=== PATIENT | male | born 1995 | race Caucasian/White ===

== ENCOUNTER → 2020-03-17 15:43 | Outpatient (CLI) | payer BC, SELFPAY | PROVIDERS: PCP Nurse Practitioner Family; Referring Provider Otolaryngology; Visit Provider Otolaryngology | DX: B37.9 Candidiasis, unspecified (principal) | CPT/HCPCS: 87070; 87205 ==

== ENCOUNTER → 2020-09-24 12:43 | Outpatient (CLI) | payer BC, SELFPAY ==
--- NOTE | 2020-09-26 19:50 | ST.MBS ---
Modified Barium Swallow - Patient Information Study Date: 09/24/20 Study Time: 12:50 Direct Billable Minutes: 70 Total Minutes procedure & reportin Diagnosis: Dysphagia (R13.14) Referring Physician: Juan Ramon Murphy Reason for Referral: The patient is a 25 year old male referred for a modified barium swallow (MBS) study to objectively assess the patients oropharyngeal swallow function under fluoroscopy secondary to reported persistent post prandial sensations of solid bolus stasis located below the laryngeal notch / above the manubrium of the sternum, with an associated 80lb weight loss since February of 2020. Medical History: Scoliosis, arthritis, depression, anxiety - Penetration-Aspiration Scale Penetration-Aspiration Scale: PENETRATION / ASPIRATION SCALE (SCORE): Thin liquid - 5 mL tsp.: 1 Thin liquids via cup: 1 Thin liquids via cup: 1 Thin liquids via cup (sequential): 2 Pudding via spoon: 1 Solid textures (Peggy Doone): 1 Solid textures (Bagel): 1 Solid textures (Bagel): 1 Thin liquids via straw: 1 - Oral Phase Labial Seal: No Labial Escape Tongue Control During Bolus Hold: Cohesive bolus between tongue to palatal seal Bolus Preparation/Mastication: Timely and efficient chewing and mashing Bolus Transport/Lingual Motion: Delayed initiation of tongue motion Oral Residue: Trace residue lining oral structures - Pharyngeal Phase Initiation of Pharyngeal Swallow: Bolus head in valleculae Soft Palate Elevation: No bolus between soft palate and pharyngeal wall Laryngeal Elevation: Comp. Superior move thyroid cart w/comp. apprx arytenoid cart-epig pet Anterior Hyoid Excursion: Partial anterior movement Epiglottic Movement: Complete inversion Laryngeal Vestibule Closure at Height of Swallow: Complete; no air/contrast in laryngeal vestibule Pharyngeal Stripping Wave: Present - complete Pharyngoesophageal Segment Opening: Parital distension and partial duration; parital obstruction of flow Tongue Base Retraction: Trace column of contrast between tongue base & post. pharyngeal wall Pharyngeal Residue: Trace residue within or on pharyngeal structures - Esophageal Phase Esophageal Clearance: Complete clearance - Diagnosis/Impression Diagnosis: Grossly within functional limits Impression: The patient presents with mastication and deglutition abilities found to be grossly within functional limits (DSRS: 1) He demonstrates competent bolus manipulation and mastication, though was more deliberate than what would be anticipated from age matched peers. The remainder of the oral preparatory phase and oral transitional phase appears unremarkable. There was a mild reduction in anterior hyoid excursion which likely contributed to the mild reduction in pharyngoesophageal segment relaxation, though there was no functional impairment noted, with the bolus transitioned to the esophageal phase without issue. The remainder of the pharyngeal phase appeared unremarkable. There were no obvious esophageal phase abnormalities observed during the esophageal scan. The current results suggest that the patient is appropriate to transition to an unrestricted solid diet. However, there does appear to be an element of phagophobia (fear of swallowing) following the initial episode that lead to his texture limitation and gradual weight loss. We will continue to assist his transition to solid textures, with the current study results likely providing positive biofeedback for the patient regarding his oropharyngeal swallow profile. - Recommendations Comment: DIET TEXTURE RECOMMENDATIONS: regular easy to chew textured (IDDSI: 7), thin liquid diet (IDDSI: 0) RECOMMENDED COMPENSATORY STRATEGIES: I would recommend initially cutting solid textures into bite sized pieces (1.5 x 1.5 cm) as he transitions back to a regular-solid textured diet, reduced rate of intake, liquid chaser at reasonable intervals, seated upright at 90 degrees during PO intake, medications one at a time with a liquid chaser. Education Completed: 1. Described result of evaluation., 2. Pt understands evaluation & agrees with goals and treatment plan. - Image Count: [phone] - Status Active ST Patient: Not Active - Contact Information [facility] Speech Therapy:: Oleg Membreno M.A., ELLI-FLASHER ADJUSTER, CBIS MBSImP Certified, LSVT Certified [facility] Speech-Language Pathology Department Email: [email or web address]
== END ==
PROVIDERS: PCP Preventive Medicine Occupational Medicine; Referring Provider Otolaryngology; Visit Provider Otolaryngology
DX: R13.14 Dysphagia, pharyngoesophageal phase (principal)
CPT/HCPCS: 74230; 92611

== ENCOUNTER 2020-10-24 15:00 | Outpatient (RCR) | payer BC, SELFPAY ==
--- NOTE | 2020-09-19 15:00 | SOAP_ITS ---
REASON FOR REFERRAL: The patient is a pleasant 25 year old male referred for a clinical assessment of the swallow function at [facility] on 09/19/2020 due to persistent symptoms of dysphagia with an unknown etiology of cause. He reports that his difficulties started in February 2020, with the patient reportedly consuming pizza crust rapidly (he reports that this was a tendency of his), and feeling as though the crust was lodged below the laryngeal notch / above the manubrium of the sternum. He attempted to make himself throw up in an effort to expel the crust, though this was not successful. He reports that this sensation as continued since, and while he reports that the sensation is quite uncomfortable, he denies odynophagia (pain during swallow). He reports that he has lost an astounding 80lbs since February of 2020, and has avoided all solid textures, with all intake consisting of liquids, pureed textures, and some ?soft solids? (nothing more solid than a banana), with no recent attempts to consume more complex solids since. He does admit that he is nervous about trying more solid textures, though he states his appetite remains and strongly desires to consume solids. To date, he has undergone workup through 2 otolaryngologists (Dr. Ahn, currently Dr. Murphy) as well as a acid recovery operator (Dr. Nichols). He repots that the initial suspicion was that he may have a stricture in addition to candidiasis (was treated with oral nystatin and later Fluconazole), with additional irritation possibly from gastroesophageal reflux that was treated with an unspecified proton pump inhibitor, though this did not improve his symptoms. He underwent a barium swallow study and an EGD (though no dilation was needed), though the results of both are reportedly unremarkable. To date no modified barium swallow study or fiberoptic endoscopic evaluation of swallowing (FEES) have been conducted. He reports that he has always struggled with consuming pills, and does routinely take Tylenol due to pain with his scoliosis; he reports that he has to chew his pills, and can take upwards of 3-4 Tylenol per day depending on his pain (however this is much less frequent since the February 2020 episode). He reports persistent xerostomia (dry mouth) since February, with his saliva feeling ?thick?; he has had some benefit managing this with cough drops. The patient denies any overt signs and symptoms of aspiration aside from an occasional post prandial cough with thin liquids (< 1x per month). MEDICAL HISTORY: Scoliosis, arthritis, depression, anxiety PREVIOUS MODIFIED BARIUM SWALLOW STUDY: None RESULTS OF THE EVALUATION: The patient presents with symptoms suggestive of mild pharyngoesophageal dysphagia with an unknown etiology of cause. SUPPLEMENTARY DYSPHAGIA ASSESSMENT RESULTS (SCALES / PROM): REFLUX SYMPTOM INDEX (RSI) RSI TOTAL SCORE: 19 RSI INDICATIONS: a score of >13 may indicate significant reflux EATING ASSESSMENT TOOL ? 10 (EAT-10): EAT-10 TOTAL SCORE: 32 EAT-10 INTERPRETATION: a score of 3+ may represent swallowing problems; an individual with a score >15 is 2.4x more likely to aspirate ORAL MOTOR / MODIFIED CRANIAL NERVE ASSESSMENT: TRIGEMINAL NERVE (CNV): no clinically significant abnormalities observed FACIAL NERVE (CNVII): no clinically significant abnormalities observed GLOSSOPHARYNGEAL NERVE (CNIX): no clinically significant abnormalities observed VAGUS NERVE (CNX): no clinically significant abnormalities observed HYPOGLOSSAL NERVE (CNXII): no clinically significant abnormalities observed DENTITION: natural upper / lower dentition in adequate repair SALIVATION: mild xerostomia (dry mouth) COUGH SUFFICIENCY: sufficient volitional cough intensity LINGUAL STRUCTURES: bilateral whitish coating along the lingual blade (possible early oral candidiasis) CLINICAL ASSESSMENT OF SWALLOW FUNCTION (QUANTITATIVE): REPETITIVE SALIVA SWALLOWING TEST (RSST): RSST RESULT: pass RSST DESCRIPTION: able to elicit 2 dry swallows within 30 seconds. 1OZ WATER SWALLOWING TEST (1OZ WST): 1OZ WST RESULTS: normal ? 1 (of 5) 1OZ WST DESCRIPTION: single swallow without coughing during ingestion DRINKING EPISODES: drinking water in a cautious manner 3OZ WATER SWALLOWING TEST (3OZ WST): 3OZ WST RESULTS: abnormal DRINKING EPISODES: swallow speed < 10mL/s CRONIN ASSESSMENT OF SWALLOWING ABILITY (MASA): MASA SEVERITY SCORE: 193 MASA SEVERITY SCORE DESCRIPTION: unremarkable MASA ASPIRATION SEVERITY SCORE: 193 MASA ASPIRATION SEVERITY SCORE DESCRIPTION: unremarkable MASA DYSPHAGIA RISK RATING: probable; moderate evidence for disorder requiring intervention or further investigation CLINICAL ASSESSMENT OF SWALLOW FUNCTION (QUALITATIVE): ORAL PREPARATORY PHASE: slowed albeit competent bolus manipulation with fragmented swallowing (piecemeal deglutition); sufficient anterior oral containment during manipulation; ORAL TRANSITIONAL PHASE: sufficient bolus transportation with noted effort and anticipated discomfort; no signs of lingual discoordination; no signs of bolus consolidation impairments; no signs or symptoms of premature posterior bolus loss. PHARYNGEAL PHASE: multiple swallows during trials of smaller / rather manageable bolus volumes possibly suggestive of pharyngeal dysmotility with the patient visually uncomfortable and exerting effort during deglutition; sufficient hyolaryngeal excursion upon digital palpation; no obvious findings suggestive of pharyngeal phase delay / dyssynchrony; no subjective signs of velopharyngeal impairments; no overt signs or symptoms of penetration / aspiration throughout trials. ESOPHAGEAL PHASE: reports a milder post prandial globus sensation following these trials for 2-3 minutes, though less intense than he expected. COMPLICATING FACTORS AND NOTABLE FINDINGS: complicating factors include a possible anxiety / fear component / phagophobia (fear of swallowing) CLINICAL ASSESSMENT OF SWALLOW FUNCTION (SEVERITY GRADING): SWALLOWING PERFORMANCE SCALE (SPS): SPS SCORE: 3 (of 7) SPS SEVERITY: mild SPS SCORE DESCRIPTION: mild dysfunction in oral or pharyngeal stage; requires modified diet or need for therapeutic swallowing precautions. INTERVENTION CONSIDERATIONS AND RECOMMENDATIONS: He did appear to tolerate more solid type textures better than he expected, though he would benefit from further workup under fluoroscopy via modified barium swallow study given the significant amount of weight that he has lost and the possibility that his reported symptoms are associated with either a pharyngeal or esophageal motility disorder, phagophobia, or a combination of both. He reported that he was told that his throat ?looks like an old man?s throat? following an endoscopic procedure with his ENT, though the report that I have access to reported normal findings; this may have been prior to his most current workup. The video imaging that can be obtained from a modified barium swallow study can be used as a biofeedback tool if there is a phagophobia component present, which I do feel is likely. He is also at a slightly higher risk of dysphagia as a side effect of pharmacological treatment (Mirtazapine), and his method of ingestion of his medication and frequency of over the counter pain medication use likely does not help (chewing his pills). RECOMMENDATIONS FOR INTERVENTION: The patient will benefit from continued skilled speech-language intervention targeting diet texture management and training / implementation of recommended compensatory strategies, with goal development pending MBS completion. He was recommended to continue introducing less complex solid textures with an intake diary provided to journal his successes and complications. I encouraged him to bring solid textures that he experiences and/or anticipates that he will struggle with during the MBS to allow us to assess his tolerance under fluoroscopy, as this will allow for a more individualized assessment of functioning as well as provide an excellent opportunity for biofeedback. POST ASSESSMENT EDUCATION: The results and recommendations were discussed with the patient immediately following completion of the assessment, with the patient verbalizing understanding and agreement with all recommendations and education provided. DIET TEXTURE RECOMMENDATIONS: Will recommend a regular ? soft textured (IDDSI: 6), thin liquid diet (IDDSI: 0) diet RECOMMENDED COMPENSATORY STRATEGIES: Reduced bolus volume / rate of ingestion, liquid chaser at reasonable intervals, consider cutting tougher textures into bite sized pieces, seated upright at 90 degrees during PO intake, remain upright for 30-60 minutes post meal (GERD precaution) FUNCTIONAL OUTCOMES: OUTCOME 1: the patient will tolerate the least restrictive means of nutrition to facilitate adequate hydration / nutrition with optimum safety and efficiency of swallowing function during P.O. intake without overt signs and symptoms of aspiration. OUTCOME 2: the patient will participate in a Modified Barium Swallow (MBS) study to objectively assess the Patient?s oropharyngeal swallowing function, to determine the least restrictive means of nutrition, and to identify appropriate intervention approaches / strategies to implement during treatment sessions at the supervised level. OUTCOME 3: goal adjustment as needed post MBS Oleg Membreno M.A., ELLI-PRODUCTION HARDENER, CBIS MBSImP Certified, LSVT Certified [facility] Speech-Language Pathology Department Email: [email or web address]
== END 2020-10-24 19:00 | disposition home or self-care (01) ==
LOC: SP 15:00
PROVIDERS: PCP Nurse Practitioner Family; Referring Provider Otolaryngology; Visit Provider Otolaryngology
DX: R13.10 Dysphagia, unspecified (principal)
CPT/HCPCS: 92526; 92610